=== PATIENT | male | born 1965 | race Caucasian/White ===

== ENCOUNTER 2016-09-24 13:53 | Day surgery (SDC) | payer OTHER ==
[~2016-09-24] VITALS: Ht 182.9 cm; Wt 102.1 kg
[~2016-09-24 13:53] MED LIST: ASCO100T11 PO; CHOL500062 PO; CYCL10TA9 PO; DULO20CA PO; GABA-502 PO; GARL10002 PO; HYDR-3090 PO; LISI2.5T PO; OMEP20CA11 PO; SIMV5TAB7 PO; [UNRECOGNIZED DRUG - CODE] PO
[2016-09-24] MEDS ORDERED: Bupivacaine-MPF 0.25% 30 mL Inj ONE (13:54)
[2016-09-24 14:33] VITALS: BP 120/76; PULSE 76; RESP 16; O2SAT 94
[2016-09-24] MEDS ORDERED: Clindamycin 900 mg/50 mL D5W Premix IV ONE ×2 (14:40→14:50)
[2016-09-24] MEDS ORDERED: fentaNYL-PF 50 mCg/mL 2 mL Inj IVPUSH PRN (14:50)
[2016-09-24 15:44] VITALS: BP 146/95; PULSE 96; RESP 16; O2SAT 95
--- NOTE | 2016-09-24 16:02 | PCM.PROC ---
Procedure Note Date of Service: Sep 24, 2016 Pre Procedure Diagnosis: PROCEDURE: Spinal cord stimulation trial, dual lead placement. PREOPERATIVE DIAGNOSIS(ES) * Lumbar postlaminectomy syndrome PREOPERATIVE NOTE Procedure and potential complications were explained and informed signed consent was obtained. The skin was marked. The patient was taken to the fluoroscopy suite. DESCRIPTION The patient was placed prone on the fluoroscopic table. A pillow was placed under the abdomen to alleviate the lumbar lordosis. Image intensifier was centered to the thoracolumbar junction with visualization of L1-L2, L2-L3 interlaminar spaces. Skin was prepped and draped in the usual sterile fashion. Cardiovascular monitor was applied and. Skin was anesthetized with 1% lidocaine at the site of L2 pedicle bilaterally. A 25-gauge spinal needle 3-1/2 inches was inserted sequentially right and the left side and advanced or until it contacted the lamina of L2. The tract of the needle was anesthetized with lidocaine as well. From the right side paramedian approach a 14-gauge Zing Systemstead needle was advanced and placed into the laminar space under fluoroscopic view using the loss of resistance device. Through the needle, 8 contact electrodes ([employer] [facility], [place], [place]) was then inserted and advanced into the epidural space from the right to the left and placed at T8-T9. In the same fashion, the needle was inserted from the left side and the same type of lead was positioned at T8-T9. The stimulation was performed. The needles were removed over the leads as well as stylets. The leads were glued to the skin with Dermabond. The fluoroscopy images were recorded on AP and lateral view also spiral localization of that final needle position was performed. The leads were fixed to the skin with the Sterifix device. The patient tolerated the procedure well. There was no complication observed during or immediately after the procedure. The patient was instructed to continue pain and activity diary without activity limitations. ANESTHESIA: Local 2 mg Versed. 200 g fentanyl EBL: None. No Blood Products Used COMPLICATIONS: None SPECIMENS: None The patient will be seen in 1 week for lead removal and conclusion of trial. Fluoroscopy time: See Radiology record Moustapha Hernandez MD * Pain Management * Anesthesiology Moustapha Hernandez MD Sep 24, 2016 16:02
== END 2016-09-24 23:59 | disposition home or self-care (01) ==
LOC: END 13:53
PROVIDERS: ATTEND Anesthesiology Pain Medicine
DX: M96.1 Postlaminectomy syndrome, not elsewhere classified (principal)
CPT/HCPCS: 63650; 99153; C1897; G0500; J2250; J3010; J3490; J7030